=== PATIENT | female | born 1990 | race Two or more races ===

== ENCOUNTER 2021-03-23 06:39 | Emergency (ER) | payer MEDICAID ==
[~2021-03-23] VITALS: Ht 165.1 cm; Wt 81.6 kg
--- NOTE | 2021-03-23 07:28 | NUR ---
[facility] ESTABLISHED
[2021-03-23 07:43] LABS: BASOPHILS % (AUTO) 0.5 % (0.0-2.0); EOSINOPHILS % (AUTO) 1.8 % (0.0-6.0); HEMATOCRIT 37 % (33-45); LYMPHOCYTES # (AUTO) 1.3 K/uL (0.8-4.8); MEAN CORPUSCULAR HGB CONC 35 g/dl (31.0-36.0); MEAN CORPUSCULAR VOLUME 94 fL (82-100); MONOCYTES # (AUTO) 0.5 K/uL (0.1-1.30); MONOCYTES % (AUTO) 7.6 % (2.0-12.0); NEUTROPHILS # (AUTO) 4.9 K/uL (1.8-8.9); NEUTROPHILS % (AUTO) 71.1 % (43.0-81.0); PLATELET COUNT (AUTO) 283 K/uL (150-450); RED BLOOD CELL COUNT(AUTO) 3.97 MIL/uL (4.0-5.2); WHITE BLOOD COUNT (AUTO) 6.9 K/uL (4.3-11.0)
--- NOTE | 2021-03-23 07:45 | NUR ---
URINE COLLECTED AND SENT TO LAB
[2021-03-23 07:53] LABS: CALCIUM, SERUM 8.1 mg/dL (8.5-10.1); CARBON DIOXIDE 27 mmol/L (21-32); CHLORIDE 103 mmol/L (98-107); CREATININE 0.8 mg/dL (0.6-1.3); GLUCOSE 93 mg/dL (74-106); POTASSIUM 3.6 mmol/L (3.5-5.1); SODIUM SERUM 136 mmol/L (136-145); UREA NITROGEN, BLOOD 10 mg/dL (7-18)
[2021-03-23 08:13] LABS: ALANINE AMINOTRANSFERASE 20 U/L (12-78); ALBUMIN 3.3 g/dL (3.4-5.0); ALCOHOL, BLOOD < 3 mg/dL (0-0); ALKALINE PHOSPHATASE 73 U/L (46-116); ASPARTATE AMINOTRANSFERASE 20 U/L (15-37); BILIRUBIN,DIRECT 0.1 mg/dL (0.0-0.2); BILIRUBIN,TOTAL 0.3 mg/dL (0.2-1.0); TOTAL PROTEIN, SERUM 6.8 g/dL (6.4-8.2)
[2021-03-23 08:50] LABS: COLOR,URINE YELLOW (YELLOW)
[2021-03-23 08:51] LABS: BILIRUBIN,URINE NEGATIVE (NEGATIVE); PH,URINE 6.5 (5.0-8.0); PROTEIN,URINE NEGATIVE (NEGATIVE); UGLUCOSE NEGATIVE (NEGATIVE)
[2021-03-23 08:52] LABS: LEUKOCYTE ESTERASE ,URINE NEGATIVE (NEGATIVE); NITRITE, URINE NEGATIVE (NEGATIVE); UROBILINOGEN,URINE 0.2 EU/dL (0.2)
--- NOTE | 2021-03-23 09:00 | NUR ---
THE PATIENT IS TAKEN TO CT
[2021-03-23] MEDS ORDERED: IOHEXOL-350 100 ML VIAL IV ONE (09:01)
[2021-03-23] MEDS ORDERED: IV NS 0.9% 250 ML IV ONE (09:01)
--- NOTE | 2021-03-23 09:30 | NUR ---
THE PATIENT IS BACK FROM CT
[2021-03-23 10:36] VITALS: BP 141/85
--- NOTE | 2021-03-23 10:36 | NUR ---
IV removed. Catheter intact and site benign. Pressure and 4x4 applied to site. No bleeding noted.Patient discharged to home in stable condition. Written and verbal after care instructions given. Patient verbalizes understanding of instruction.
== END 2021-03-23 10:37 | disposition home or self-care (01) ==
LOC: ER 06:42
DX: R51.9 Headache, unspecified (principal); R07.89 Other chest pain
CPT/HCPCS: 36415; 70450; 70460; 71045; 71275; 80048; 80076; 80307; 80320; 81003; 84484; 85025; 85378; 93005 ×2; 99285; J7050; Q9967; G0480